=== PATIENT | male | born 1960 | race Caucasian/White ===

== ENCOUNTER 2016-11-06 17:31 | Emergency (ER) | payer SELFPAY ==
[~2016-11-06] VITALS: Ht 167.6 cm; Wt 59.0 kg
[~2016-11-06 17:31] MED LIST: COLACE100 MG PO; NO HOME MEDS; NORCO 5/3251 TABLET PO; PEN-VEE K,VEET500 MG PO; ULTRAM50 MG PO
[2016-11-06 18:37] LABS: HEMATOCRIT 35.6 % (38.0-50.0); MCH 31.9 PG (29.0-34.0); MCHC 33.4 G/DL (30.0-36.0); MCV 95.4 FL (86-99); MEAN PLAT.VOLUME 8.7 uM^3 (9.0-12.4); PLATELET COUNT 283 K/uL (156-360); RBC DIS.WIDTH-CV 13.1 % (11.8-14.6); RBC DIS.WIDTH-SD 45.7 % (39-53); RED BLOOD COUNT 3.73 M/uL (4.00-5.50); WHITE BLOOD COUNT 10.7 K/uL (4.1-10.2)
[2016-11-06 18:49] LABS: CHLORIDE 103 mEq/L (99-109); POTASSIUM 3.8 mEq/L (3.7-5.4); SODIUM 136 mEq/L (136-147)
[2016-11-06 18:50] LABS: GLUCOSE 77 mg/dL (70-99)
[2016-11-06 18:52] LABS: ANION GAP 11 MEQ/L (2-14)
[2016-11-06 18:54] LABS: GFR ESTIMATE (CALCULATED) > 59 mL/min/
[2016-11-06 18:55] LABS: UREA NITROGEN (BUN) 18 mg/dL (9-23)
[2016-11-06] MEDS ORDERED: OXYCODONE HCL10 MG PO (22:38)
[2016-11-06 23:42] VITALS: BP 162/87
== END 2016-11-06 23:33 | disposition home or self-care (01) ==
LOC: EME 17:31 → TRA 17:31
PROVIDERS: Emergency Medicine
PROC: 2W3QX1Z Immobilization of Right Lower Leg using Splint (ICD-10-PCS; principal; 2016-11-06)
DX: S92.001A Unspecified fracture of right calcaneus, initial encounter for closed fracture (principal); W13.2XXA Fall from, out of or through roof, initial encounter; Y99.0 Civilian activity done for income or pay; E78.5 Hyperlipidemia, unspecified; F17.200 Nicotine dependence, unspecified, uncomplicated
CPT/HCPCS: 71010; 72100; 72125; 72128; 72131; 72170; 73590; 73600; 73700; 80048; 85027; 86900; 86901; 99281; 99285; J1170; J2060; J2270; J7050